=== PATIENT | female | born 1975 | race African-American/Black ===

== ENCOUNTER 2019-10-05 10:56 | Emergency (ER) | payer OTHER ==
--- NOTE | 2019-10-05 11:36 | ED ---
GI/ HPI - HPI Summary HPI Summary: Pt is a 44 y/o F presenting to the ED with a chief complaint of issues. She states shes had a cyst on her labia for years that has been small, but a couple of nights ago she noticed it was larger. She squeezed it with some discharge, and since then it has grown and is painful. She denies fever, chills , N/V. Medications reviewed. Allergies noted. - History of Current Complaint Chief Complaint: EDRashSkinAbscess Time Seen by Provider: 10/05/19 11:04 Stated Complaint: CYST PER PT Hx Obtained From: Patient Onset/Duration: Started Days Ago, Still Present Timing: Constant, Lasting Days Severity: Mild Current Severity: Moderate Pain Intensity: 9 Additional Location for Females: Other - labial cyst Associated Signs and Symptoms: Negative: Nausea, Vomiting, Fever, Chills Additional Signs & Symptoms: Positive: Genital Swelling Aggravating Factor(s): Nothing Alleviating Factor(s): Nothing - Allergy/Home Medications Allergies/Adverse Reactions: Allergies Allergy/AdvReac Type Severity Reaction Status Date / Time No Known Allergies Allergy Verified 05/16/15 01:48 Home Medications: Home Medications Atenolol/Chlorthalidone [Atenolol/Chlorthalidone 50-25 mg-] 1 tab PO DAILY 10/05 [History Confirmed 10/05/19] PMH/Surg Hx/FS Hx/Imm Hx Previously Healthy: Yes Endocrine/Hematology History: Denies: Hx Diabetes Cardiovascular History: Reports: Hx Hypertension GI History: Reports: Hx Gastroesophageal Reflux Disease - Cancer History Hx Chemotherapy: No Hx Radiation Therapy: No Infectious Disease History: No Infectious Disease History: Denies: Traveled Outside the [place] in Last 30 Days - Family History Known Family History: Negative: Hypertension - Social History Alcohol Use: Weekly Hx Substance Use: Yes Substance Use Type: Reports: Marijuana Hx Tobacco Use: No Smoking Status (MU): Light Every Day Tobacco Smoker Review of Systems Negative: Fever, Chills Negative: Vomiting, Nausea Positive: Edema - labial cyst All Other Systems Reviewed And Are Negative: Yes Physical Exam - Summary Physical Exam Summary: Constitutional: Well-developed, Well-nourished, Alert. (-) Distressed Skin: Warm, Dry HENT: Normocephalic; Atraumatic Eyes: Conjunctiva normal Neck: Musculoskeletal ROM normal neck. (-) JVD, (-) Stridor, (-) Tracheal deviation Cardio: Rhythm regular, rate normal, Heart sounds normal; Intact distal pulses; Radial pulses are 2+ and symmetric. (-) Murmur Pulmonary/Chest wall: Effort normal. (-) Respiratory distress, (-) Wheezes, (-) Rales Abd: Soft, (-) tenderness, (-) Distension, (-) Guarding, (-) Rebound Musculoskeletal: (-) Edema Lymph: (-) Cervical adenopathy Neuro: Alert, Oriented x3 Psych: Mood and affect Normal : Edema and tenderness on R lower labia with some discharge from the area of induration. Triage Information Reviewed: Yes Vital Signs On Initial Exam: Initial Vitals Temp Pulse Resp BP Pulse Ox 97.9 F 72 16 164/104 97 10/05/19 10:58 10/05/19 10:58 10/05/19 10:58 10/05/19 10:58 10/05/19 10:58 Vital Signs Reviewed: Yes Procedures - Procedure Summary Procedure Summary: 8ml of 1% lidocaine injected into abscess. Used #11 blade to make a 1cm incision. Drained small amount of purulent material. Irrigated w saline. No packing placed. - Sedation Patient Received Moderate/Deep Sedation with Procedure: No - Incision and Drainage Right Lower Labia Site: right lower labia Anesthesia: Local - 8ml, Lidocaine - 1% Instrument(s): Other - #11 blade Packing: Other - no packing Diagnostics - Vital Signs Vital Signs Temp Pulse Resp BP Pulse Ox 10/05/19 10:58 97.9 F 72 16 164/104 97 - Laboratory Lab Statement: Any lab studies that have been ordered have been reviewed, and results considered in the medical decision making process. GIGU Course/Dx - Course Course Of Treatment: Patient is here with a Bartholin's gland abscess. Patient had successful drainage of her abscess. Patient is not septic on my exam or vital signs. Patient was given [employer] follow-up. - Diagnoses Provider Diagnoses: Bartholin cyst Discharge ED - Sign-Out/Discharge Documenting (check all that apply): Patient Departure - Discharge Plan Condition: Stable Disposition: HOME Patient Education Materials: Bartholin Cyst (ED), Incision and Drainage (ED) Forms: *Work Release Referrals: Rasheeda Hill MD [Primary Care Provider] - Gabriela Vitale MD [Medical Doctor] - Additional Instructions: Follow up with Dr. Vitale of [employer] within the next 1-3 days. Take Tylenol and Ibuprofen for your pain as needed. Wear a pad until the drainage stops. Return to the emergency department with any worsening swelling, fevers, or chills. - Billing Disposition and Condition Condition: STABLE Disposition: Home - Attestation Statements Document Initiated by Scribe: Yes Documenting Scribe: Gini Garcia Provider For Whom [place] is Documenting (Include Credential): Jerod Babin MD. Scribe Attestation: Gini Sherman, scribed for Jerod Babin MD. on 10/05/19 at 1939. Scribe Documentation Reviewed: Yes Provider Attestation: The documentation as recorded by the scribe, Gini Garcia accurately reflects the service I personally performed and the decisions made by me, Jerod Babin MD. Status of Scribe Document: Viewed
[2019-10-05] MEDS ORDERED: Lidocaine 1% MPF ** 5 ML VIAL INJ ONE (12:02)
[2019-10-05] MEDS ORDERED: Ibuprofen TAB* 600 MG PO ONE (12:25)
[2019-10-05] MEDS ORDERED: Acetaminophen TAB* 325 MG PO ONE (12:25)
[2019-10-05 12:47] VITALS: BP 131/98
== END 2019-10-05 12:46 | disposition home or self-care (01) ==
LOC: ED 10:56
DX: N75.0 Cyst of Bartholin's gland (principal); I10 Essential (primary) hypertension; F17.200 Nicotine dependence, unspecified, uncomplicated
CPT/HCPCS: 56420; 99282; A9270-GY